=== PATIENT | female | born 1965 | race Caucasian/White ===

== ENCOUNTER → 2017-07-08 | Outpatient (CLI) | payer OTHER ==
[~2017-07-08] MED LIST: ASPIRIN EC81 M1 PO; CELEXA 20 MG TA20 M1 PO; COUMADIN 5 MG TA5 M1 PO; ENOXAPARIN80 MG/0.8 SQ; GARCINIA CAMBOGIA PO; MELADOX3 MG PO; METOPROLOL SUCC25 M1 PO; MULTIVITAMINS1 EAC7 PO; PROGESTERONE100 MG PO
== END ==
LOC: RAD 13:12
DX: Z12.31 Encounter for screening mammogram for malignant neoplasm of breast (principal)

== ENCOUNTER → 2019-02-11 | Outpatient (CLI) | payer OTHER | LOC: RAD 13:58 | DX: Z12.31 Encounter for screening mammogram for malignant neoplasm of breast (principal) ==